=== PATIENT | female | born 1955 | race Caucasian/White ===

== ENCOUNTER 2018-09-23 09:14 | Inpatient (IN) ==
[2018-09-23] MEDS ORDERED: Labetalol HCl Inj 100 MG/20 ML Vial IV.CONT ONE (09:23)
[2018-09-23] MEDS ORDERED: Lidocaine PF 1% Inj 5 ML Syringe INFILTRATN ONE (09:23)
--- NOTE | 2018-09-23 10:19 | ED ---
HPI General Chief complaint: Extremity Injury, Lower Stated complaint: hip pain Time Seen by Provider: 09/23/18 10:02 History of Present Illness HPI narrative: 62-year-old female presents to the emergency department for evaluation of fall with left hip injury that occurred 3 days ago. Patient states she is status post left hip arthroplasty. States that 3 days ago she was walking in her house and her bedroom slipper got caught on the rug causing her to trip and fall onto her left side. States that she caught herself with her hands but she did fall hard onto her left hip. Denies head trauma or loss of consciousness. States that since then she has had significant pain in her left hip, lateral aspect. States that she is able to stand and weight-bear minimally however she cannot lift from the hip due to pain. Denies any numbness or tingling, weakness. She has been taking [id number] Tylenol with some improvement of symptoms. Symptoms are moderate in severity. Aggravated with movement of the hip. Possibly alleviated with Tylenol. No other complaints. Related Data Home Medications Medication Instructions Recorded Confirmed [id number] 2 tab PO Q4-6H PRN 09/24/18 09/24/18 [Excedrin Migraine] Allergies Allergy/AdvReac Type Severity Reaction Status Date / Time No Known Allergies Allergy Verified 09/23/18 10:51 Review of Systems ROS: all other systems reviewed are negative PMFSH Medical History Medical History Patient denies medical problems (Acute) Surgical History Surgical History History of hip replacement (Acute) Hx of laminectomy (Acute) Social History Social History Substance History: No History of Abuse Second Hand Smoke Exposure: Yes Smoking Status: Current every day smoker Tobacco Type: Cigarettes How Often Do You Have a Drink Containing Alcohol: Never Recent Travel in [place] within the Last 8 Weeks: No Recent Out of Country Travel within the Last 8 Weeks: No Immunization History Tetanus Immunization: Unsure Exam Narrative Exam Narrative: GENERAL: Well-nourished and well-developed pleasant patient in no acute distress who is nontoxic appearing. SKIN: Warm and dry. HEAD: Normocephalic and atraumatic. EYES: No injection, drainage, or hyphema noted. PERRLA. EOMI. ENT: No nasal drainage noted. Oropharynx is clear. NECK: Supple and the trachea is midline. CARDIOVASCULAR: Regular rate and rhythm. RESPIRATORY: Breath sounds are equal bilaterally with no accessory muscle use, wheezing, rhonchi, or crackles. MUSCULOSKELETAL: Tenderness to palpation of left lateral hip. Decreased range of motion in the left hip due to pain. No obvious deformities, swelling, cyanosis, or ecchymosis is present throughout the upper and lower extremities. Patient has full range of motion in all other joints and extremities without any signs of neurovascular compromise. Distal pulses are 2+ throughout. BACK: Nontender without any obvious deformities, bony point tenderness, or crepitus noted throughout the thoracic and lumbar vertebrae. NEUROLOGICAL: Awake, alert, and oriented. Normal speech and gait. Cranial nerves are grossly intact. Course Initial Documented Vital Signs Temperature 98.0 F 09/23/18 09:24 Pulse Rate 72 09/23/18 09:24 Respiratory Rate 18 09/23/18 09:24 Blood Pressure 152/91 H 09/23/18 09:24 Last Documented Vital Signs Temperature 99.5 F 09/25/18 12:00 Pulse Rate 67 09/25/18 12:00 Respiratory Rate 16 09/25/18 12:00 Blood Pressure 133/90 09/25/18 12:00 Pulse Oximetry 100 09/25/18 12:00 Medical Decision Making JUAN MANUEL Attestation JUAN MANUEL supervised visit: Yes Attestation: I, Dr. Cavazos, have reviewed the advance practice practitioner's documentation and am in agreement, met with the patient face to face, made the diagnosis, and the medical decision making was done by me. *My assessment and Findings: Fracture left femur MDM Narrative Medical decision making narrative: 62-year-old female presents to the emergency department for evaluation of left hip injury status post trip and fall that occurred 3 days ago. Patient is afebrile, vital signs are stable. Left lower extremity is neurovascularly intact. X-ray imaging has been ordered and is pending. Patient administered Fosters 5-325 mg orally. X-ray imaging shows patient has a left femur fracture through the arthroplasty. I called and discussed the case with Dr. Leung who also reviewed the images and request that patient be n.p.o. after midnight and admitted and he will do surgery in the morning. My attending physician Dr. Cavazos will review the labs, EKG and chest x-ray and have the patient admitted to medicine service. Medical Screen Exam Complete: Yes Emergency Medical Condition: Yes Differential Diagnosis Differential Diagnosis: Contusion versus fracture versus dislocation Lab Data Result diagrams: 09/25/18 06:42 09/24/18 04:51 Lab Results 09/23/18 09/23/18 09/23/18 Range/Units 11:44 11:44 11:44 WBC 6.4 (4.0-11.0) th/mm3 RBC 4.22 (4.00-5.30) mil/mm3 Hgb 12.8 (11.6-15.3) gm/dL Hct 37.4 (35.0-46.0) % MCV 88.7 (80.0-100.0) fL MCH 30.5 (27.0-34.0) pg MCHC 34.3 (32.0-36.0) % RDW 14.3 (11.6-17.2) % Plt Count 246 (150-450) th/mm3 MPV 7.6 (7.0-11.0) fL Neut % (Auto) 64.2 (16.0-70.0) % Lymph % (Auto) 28.1 (9.0-44.0) % [place] % (Auto) 6.4 (0.0-8.0) % Eos % (Auto) 0.6 (0.0-4.0) % Baso % (Auto) 0.7 (0.0-2.0) % Neut # (Auto) 4.1 (1.8-7.7) th/mm3 Lymph # (Auto) 1.8 (1.0-4.8) th/mm3 [place] # (Auto) 0.4 (0.0-0.9) th/mm3 Eos # (Auto) 0.0 (0.0-0.4) th/mm3 Baso # (Auto) 0.0 (0.0-0.2) th/mm3 WBC Differential . Differential Comment Auto diff final PT 10.1 (9.8-11.6) sec INR 1.0 Ratio APTT 29.3 (23.4-31.7) sec Sodium 140 (136-145) meq/L Potassium 3.9 (3.5-5.1) meq/L Chloride 104 (98-107) meq/L Carbon Dioxide 29.8 (21.0-32.0) meq/L Anion Gap 6 (5-15) meq/L BUN 7 (7-18) mg/dL Creatinine 0.66 (0.50-1.00) mg/dL Estimated GFR Greater than 89 (>89) mL/min Random Glucose 92 (74-106) mg/dL Calcium 8.9 (8.5-10.1) mg/dL Total Bilirubin 0.4 (0.2-1.0) mg/dL AST 32 (15-37) U/L ALT 35 (10-53) U/L Alkaline Phosphatase 137 H (45-117) U/L Total Protein 7.6 (6.4-8.2) g/dL Albumin 3.8 (3.4-5.0) g/dL Blood Type Blood Type Recheck Antibody Screen 09/24/18 09/24/18 09/24/18 Range/Units 04:51 04:51 08:36 WBC (4.0-11.0) th/mm3 RBC (4.00-5.30) mil/mm3 Hgb (11.6-15.3) gm/dL Hct (35.0-46.0) % MCV (80.0-100.0) fL MCH (27.0-34.0) pg MCHC (32.0-36.0) % RDW (11.6-17.2) % Plt Count (150-450) th/mm3 MPV (7.0-11.0) fL Neut % (Auto) (16.0-70.0) % Lymph % (Auto) (9.0-44.0) % [place] % (Auto) (0.0-8.0) % Eos % (Auto) (0.0-4.0) % Baso % (Auto) (0.0-2.0) % Neut # (Auto) (1.8-7.7) th/mm3 Lymph # (Auto) (1.0-4.8) th/mm3 [place] # (Auto) (0.0-0.9) th/mm3 Eos # (Auto) (0.0-0.4) th/mm3 Baso # (Auto) (0.0-0.2) th/mm3 WBC Differential Differential Comment PT 10.3 (9.8-11.6) sec INR 1.0 Ratio APTT (23.4-31.7) sec Sodium 140 (136-145) meq/L Potassium 3.9 (3.5-5.1) meq/L Chloride 103 (98-107) meq/L Carbon Dioxide 32.5 H (21.0-32.0) meq/L Anion Gap 5 (5-15) meq/L BUN 9 (7-18) mg/dL Creatinine 0.72 (0.50-1.00) mg/dL Estimated GFR 83 L (>89) mL/min Random Glucose 83 (74-106) mg/dL Calcium 9.2 (8.5-10.1) mg/dL Total Bilirubin 0.5 (0.2-1.0) mg/dL AST 27 (15-37) U/L ALT 30 (10-53) U/L Alkaline Phosphatase 129 H (45-117) U/L Total Protein 7.5 (6.4-8.2) g/dL Albumin 3.6 (3.4-5.0) g/dL Blood Type A Positive Blood Type Recheck Required Antibody Screen Negative 09/25/18 Range/Units 06:42 WBC (4.0-11.0) th/mm3 RBC (4.00-5.30) mil/mm3 Hgb 11.1 L (11.6-15.3) gm/dL Hct 32.0 L (35.0-46.0) % MCV (80.0-100.0) fL MCH (27.0-34.0) pg MCHC (32.0-36.0) % RDW (11.6-17.2) % Plt Count (150-450) th/mm3 MPV (7.0-11.0) fL Neut % (Auto) (16.0-70.0) % Lymph % (Auto) (9.0-44.0) % [place] % (Auto) (0.0-8.0) % Eos % (Auto) (0.0-4.0) % Baso % (Auto) (0.0-2.0) % Neut # (Auto) (1.8-7.7) th/mm3 Lymph # (Auto) (1.0-4.8) th/mm3 [place] # (Auto) (0.0-0.9) th/mm3 Eos # (Auto) (0.0-0.4) th/mm3 Baso # (Auto) (0.0-0.2) th/mm3 WBC Differential Differential Comment PT (9.8-11.6) sec INR Ratio APTT (23.4-31.7) sec Sodium (136-145) meq/L Potassium (3.5-5.1) meq/L Chloride (98-107) meq/L Carbon Dioxide (21.0-32.0) meq/L Anion Gap (5-15) meq/L BUN (7-18) mg/dL Creatinine (0.50-1.00) mg/dL Estimated GFR (>89) mL/min Random Glucose (74-106) mg/dL Calcium (8.5-10.1) mg/dL Total Bilirubin (0.2-1.0) mg/dL AST (15-37) U/L ALT (10-53) U/L Alkaline Phosphatase (45-117) U/L Total Protein (6.4-8.2) g/dL Albumin (3.4-5.0) g/dL Blood Type Blood Type Recheck Antibody Screen Imaging Data Radiologist's impression: Hip X-Ray 09/23/18 10:18 CONCLUSION: Proximal left femur fracture through the region of previous ADOLFO femoral stem Chest X-Ray 09/23/18 11:29 CONCLUSION: Negative for acute process Femur X-Ray 09/24/18 00:00 CONCLUSION: Interim screw, wire and plate fixation of the proximal shaft fracture of the left femur in normal alignment. Femur X-Ray 09/24/18 00:00 CONCLUSION: Interim plate fixation of the proximal shaft fracture of the left femur. Normal alignment. No acute complication demonstrated. Hip X-Ray 09/24/18 00:00 CONCLUSION: Interim plate fixation of the femur in normal alignment. No acute complication demonstrated. Discharge Plan Discharge Disposition Patient Disposition: ED Admit(ED Internal Use Only) Discharge Order Discharge Orders: ED Use Only Admit Order (Routine); Ordered 09/23/18 Ordered By: Andres Cavazos Discharge Details Diagnosis: Fracture of femur, left, closed Physicians Team ED Provider: Andres Cavazos ED Midlevel Provider: Bridgett Dixon Primary Care Provider: Primary Care Darby Salinas Attending Provider: Jeferson Dixon Other Providers: Vamsi Leung Status ED Status: Left Department Discharge Information Discharge Date/Time: 09/23/18 16:10
[2018-09-23 11:55] LABS: Baso % (Auto) 0.7 % (0.0-2.0); Eos % (Auto) 0.6 % (0.0-4.0); Hematocrit 37.4 % (35.0-46.0); Hemoglobin 12.8 gm/dL (11.6-15.3); Lymph # (Auto) 1.8 th/mm3 (1.0-4.8); Lymph % (Auto) 28.1 % (9.0-44.0); Mean Corpuscular HGB Conc 34.3 % (32.0-36.0); Mean Corpuscular Hemoglobin 30.5 pg (27.0-34.0); Mean Corpuscular Volume 88.7 fL (80.0-100.0); Mean Platelet Volume 7.6 fL (7.0-11.0); Mono # (Auto) 0.4 th/mm3 (0.0-0.9); Mono % (Auto) 6.4 % (0.0-8.0); Neut # (Auto) 4.1 th/mm3 (1.8-7.7); Neut % (Auto) 64.2 % (16.0-70.0); Platelet Count 246 th/mm3 (150-450); Red Blood Count 4.22 mil/mm3 (4.00-5.30); Red Cell Distribution Width 14.3 % (11.6-17.2); White Blood Count 6.4 th/mm3 (4.0-11.0)
[2018-09-23 12:06] LABS: Activated Partial Thrombo Time 29.3 sec (23.4-31.7); Prothrombin Time 10.1 sec (9.8-11.6)
[2018-09-23 12:17] LABS: Alanine Aminotransferase 35 U/L (10-53); Albumin 3.8 g/dL (3.4-5.0); Anion Gap 6 meq/L (5-15); Aspartate Aminotransferase 32 U/L (15-37); Blood Urea Nitrogen 7 mg/dL (7-18); Calcium 8.9 mg/dL (8.5-10.1); Carbon Dioxide 29.8 meq/L (21.0-32.0); Chloride 104 meq/L (98-107); Glomerular Filtration Rate Greater Than 89 mL/min (>89); Glucose,Random 92 mg/dL (74-106); Potassium 3.9 meq/L (3.5-5.1); Sodium 140 meq/L (136-145)
[2018-09-23 12:19] LABS: Alkaline Phosphatase 137 U/L (45-117); Total Protein 7.6 g/dL (6.4-8.2)
--- NOTE | 2018-09-23 12:48 | XR ---
EXAM DATE: 09/23/2018 12:46 PM EST AGE/SEX: 62 years / Female INDICATIONS: Cough. CLINICAL DATA: This is the patient's initial encounter. Patient reports that signs and symptoms have been present for 4 - 6 days and indicates a pain score of 0/10. MEDICAL/SURGICAL HISTORY: None. . Bilateral hip fx and surgery. COMPARISON: No prior exams available for comparison. FINDINGS: A single AP view of the chest demonstrates the lungs to be symmetrically aerated without evidence of mass, infiltrate or effusion. The cardiomediastinal contours are unremarkable. Osseous structures a re intact. CONCLUSION: Negative for acute process Electronically signed by: Rasta Trinh MD Board Certified Radiologist 09/23/2018 12:47 PM EST
[2018-09-23] MEDS ORDERED: Bisacodyl 10 MG Supp RECTAL PRN (13:22)
[2018-09-23] MEDS ORDERED: Acetaminophen 325 MG Tablet PO PRN (13:22)
--- NOTE | 2018-09-23 13:24 | XR ---
EXAM DATE: 09/23/2018 10:51 AM EST AGE/SEX: 62 years / Female INDICATIONS: Left hip pain after a fall. CLINICAL DATA: This is the patient's initial encounter. Patient reports that signs and symptoms have been present for 4 - 6 days and indicates a pain score of 8/10. MEDICAL/SURGICAL HISTORY: None. . Right hip.leg fx with surgery 2 years ago.Left hip surgery . COMPARISON: [facility], HIP LEFT (AP&LAT 2/3VWS) WO AP PELVIS, 07/02/2014. . FINDINGS: Left total hip arthroplasty is present. There is an oblique fracture through the proximal left femur in the region of the proximal stem extending from the inferior aspect of the greater trochanter obliq uely down into the medial metadiaphyseal region several centimeters proximal to the tip of the femora l stem component. There is some mild medial displacement of the proximal fragment it from the femoral component. The adjacent pelvis appears grossly intact. There has been previous IM nick and transcervical screw fixation of the contralateral right femur. Severe degenerative change in the rig ht hip joint. CONCLUSION: Proximal left femur fracture through the region of previous ADOLFO femoral stem Electronically signed by: Aníbal Fernandez MD Board Certified Radiologist 09/23/2018 1:23 PM EST
--- NOTE | 2018-09-23 13:53 | P.HPIM ---
History of Present Illness Primary Care Physician: Patient is a 62 year old female with no past medical history who presents to the ED for LEFT hip pain s/p mechanical fall at residence 4 days prior to admission. Patient reports she was home doing work around the house when she got her slipper stuck on the floor and lost her balance and fell on her left side. Patient tried to brace herself from falling so she did not take a full hit to the left side. Of note patient has had previous orthopedic surgical interventions. [address] Scooter Leung and also a hx of LEFT femur repair ( broken) by Dr. Watkins. Patient has known screws in the femur. Patient denied chest pain, nausea, vomiting, diaphoresis prior to the fall. Fall not witnessed but no seizure history. Patient reports she strictly lost her balance and fell. In ED EKG with sinus bradycardia but no acute ST changes. Good R wave progression. Orthopedics Dr. Mccallum notified and patient to go to OR on 09/24. NPO at midnight. Review of Systems Review of Systems: all other systems reviewed are negative [facility] Medical History Medical History Patient denies medical problems (Acute) Surgical History Surgical History History of hip replacement (Acute) Hx of laminectomy (Acute) Social History Social History Substance History: No History of Abuse Second Hand Smoke Exposure: Yes Smoking Status: Current every day smoker Tobacco Type: Cigarettes How Often Do You Have a Drink Containing Alcohol: Never Recent Travel in [facility] within the Last 8 Weeks: No Recent Out of Country Travel within the Last 8 Weeks: No Immunization History Tetanus Immunization: Unsure Medications and Allergies Allergies Allergy/AdvReac Type Severity Reaction Status Date / Time No Known Allergies Allergy Verified 09/23/18 10:51 Home Medications Medication Instructions Recorded Confirmed Type No Known Home Medications 09/23/18 09/23/18 History Active Medications: Active Medications Acetaminophen (Tylenol) 650 mg PO Q4H PRN PRN Reason: Temp > 100.4 Al Hydroxide/Mg Hydroxide (Milk Of Magnesia Liq) 30 ml PO Q12H PRN PRN Reason: Mild Constipation Bisacodyl (Dulcolax Supp) 10 mg RECTAL DAILY PRN PRN Reason: SEVERE CONSITIPATION Enoxaparin Sodium (Lovenox Inj) 30 mg SQ Q24H TRANG Lactulose (Lactulose Liq) 30 ml PO DAILY PRN PRN Reason: SEVERE CONSITIPATION Ondansetron HCl (Zofran Inj) 4 mg IV.PUSH Q6H PRN PRN Reason: NAUSEA OR VOMITING Senna/Docusate Sodium (Marita-Colace) 1 tab PO BID TRANG Sennosides (Senokot) 17.2 mg PO Q12H PRN PRN Reason: Moderate Constipation Sodium Chloride (Ns Flush) 2 ml IV.FLUSH PRN PRN PRN Reason: FLUSH AFTER USING IV ACCESS Sodium Chloride (Ns Flush) 2 ml IV.FLUSH BID TRANG Sodium Chloride (Ns Flush) 2 ml IV.FLUSH PRN PRN PRN Reason: FLUSH AFTER USING IV ACCESS Physical Exam Vital signs: Vital Signs 09/23/18 09:24 09/23/18 11:47 Temperature 98.0 F Pulse Rate 72 62 Respiratory Rate 18 20 Blood Pressure 152/91 H 157/88 H Pulse Oximetry 100 Intake & Output 09/22/18 09/23/18 09/23/18 18:59 06:59 18:59 Weight 54.431 kg gen: nad heent: eomi cvs; s1/s2. manual HR 62 resp: cta gi: soft, non tender, non distended msk/ortho: LEFT hip post surgical scar from prior surgery c/d/i. no hematoma, minimal tenderness ext; no leg edema Results Labs CBC & Chem 7: 09/23/18 11:44 09/23/18 11:44 Imaging Impressions Hip X-Ray 09/23/18 10:18 CONCLUSION: Proximal left femur fracture through the region of previous ADOLFO femoral stem Chest X-Ray 09/23/18 11:29 CONCLUSION: Negative for acute process Caprini VTE Risk Assessment Caprini VTE Risk Assessment: No/Low Risk (score <= 1) Caprini Risk Assessment Model: Point Value = 1 Point Value = 2 Point Value = 3 Point Value = 5 Age 41-60 Minor surgery BMI > 25 kg/m2 Swollen legs Varicose veins or History of unexplained or recurrent spontaneous Oral contraceptives or hormone replacement Sepsis (< 1 month) Serious lung disease, including pneumonia (< 1 month) Abnormal pulmonary function Acute myocardial infarction Congestive heart failure (< 1 month) History of inflammatory bowel disease Medical patient at bed rest Age 61-74 Arthroscopic surgery Major open surgery (> 45 min) Laparoscopic surgery (> 45 min) Malignancy Confined to bed (> 72 hours) Immobilizing plaster cast Central venous access Age >= 75 History of VTE Family history of VTE Factor V Leiden Prothrombin [id number] Lupus anticoagulant Anticardiolipin antibodies Elevated serum homocysteine Heparin-induced thrombocytopenia Other congenital or acquired thrombophilia Stroke (< 1 month) Elective arthroplasty Hip, pelvis, or leg fracture Acute spinal cord injury (< 1 month) Prophylaxis Regimen: Total Risk Factor Score Risk Level Prophylaxis Regimen 0-1 Low Early ambulation 2 Moderate Order ONE of the following: *Sequential Compression Device (SCD) *Heparin 5000 units SQ BID 3-4 Higher Order ONE of the following medications: *Heparin 5000 units SQ TID *Enoxaparin/Lovenox 40 mg SQ daily (WT < 150 kg, CrCl > 30 mL/min) *Enoxaparin/Lovenox 30 mg SQ daily (WT < 150 kg, CrCl > 10-29 mL/min) *Enoxaparin/Lovenox 30 mg SQ BID (WT < 150 kg, CrCl > 30 mL/min) AND/OR *Sequential Compression Device (SCD) 5 or more Highest Order ONE of the following medications: *Heparin 5000 units SQ TID (Preferred with Epidurals) *Enoxaparin/Lovenox 40 mg SQ daily (WT < 150 kg, CrCl > 30 mL/min) *Enoxaparin/Lovenox 30 mg SQ daily (WT < 150 kg, CrCl > 10-29 mL/min) *Enoxaparin/Lovenox 30 mg SQ BID (WT < 150 kg, CrCl > 30 mL/min) AND *Sequential Compression Device (SCD) Assessment and Plan Plan patient is a 62 year old female with history of prior LEFT femur repair, RIGHT hip replacement who presents with worsening LEFT hip pain s/p mechanical fall found to have femur fracture orthopedics: femur fracture - ortho consulted and recc PENDING - npo at midnight - ekg reviewed: sinus eleazar no ST change - cbc, bmp, inr for am - PT consult AFTER she returns from OR. primary team will place consult after O.R - hip xray: Proximal left femur fracture through the region of previous ADOLFO femoral stem Psych: tobacco use - counselled patient on importance of not smoking, patient verbalized understanding and reports that she will not continue to smoke code: fc dvt ppx: lovenox ( hold on 09/24) diet: regular --> npo at midnight dispo: med/surg
[2018-09-23] MEDS: Morphine Sulfate Inj 2 MG/ML Vial IV.PUSH PRN ×3 (15:25→23:38)
[2018-09-23] MEDS: Enoxaparin Inj 30 MG/0.3 ML Syringe SQ SCH (15:25)
[2018-09-23] MEDS: Senna/Docusate Sodium 8.6/50 MG Tablet PO SCH (20:05)
[2018-09-24] MEDS ORDERED: Chlorhexidine Gluconate 2% 1 Pack (2 Cloths) TOPICAL ONE (04:08)
[2018-09-24] MEDS: Morphine Sulfate Inj 2 MG/ML Vial IV.PUSH PRN (04:35)
[2018-09-24] MEDS ORDERED: Sodium Chlor 0.9% Inj 500 ML IV.SIG SCH (05:00)
[2018-09-24 06:16] LABS: Prothrombin Time 10.3 sec (9.8-11.6)
[2018-09-24 06:35] LABS: Albumin 3.6 g/dL (3.4-5.0); Anion Gap 5 meq/L (5-15); Aspartate Aminotransferase 27 U/L (15-37); Blood Urea Nitrogen 9 mg/dL (7-18); Calcium 9.2 mg/dL (8.5-10.1); Carbon Dioxide 32.5 meq/L (21.0-32.0); Chloride 103 meq/L (98-107); Glomerular Filtration Rate 83 mL/min (>89); Glucose,Random 83 mg/dL (74-106); Potassium 3.9 meq/L (3.5-5.1); Sodium 140 meq/L (136-145)
[2018-09-24 06:40] LABS: Alanine Aminotransferase 30 U/L (10-53); Alkaline Phosphatase 129 U/L (45-117); Total Protein 7.5 g/dL (6.4-8.2)
[2018-09-24] MEDS ORDERED: HYDROmorphone PF Inj 1 MG/ML Ampul ONE ×2 (06:57→10:53)
[2018-09-24] MEDS ORDERED: Neostigmine Inj 5 MG/5 ML Syringe IV.PUSH ONE (07:50)
[2018-09-24] MEDS ORDERED: Glycopyrrolate Inj 1 MG/5 ML Syringe IV.PUSH ONE (07:50)
[2018-09-24] MEDS ORDERED: Sodium Chlor 0.9% Inj 500 ML IV.CONT ONE (07:50)
[2018-09-24] MEDS ORDERED: Lidocaine PF 1% Inj 5 ML Syringe OTHER ONE (07:50)
[2018-09-24] MEDS ORDERED: Tranexamic Acid Inj 1,000 MG/10 ML Ampul ONE (08:13)
[2018-09-24] MEDS: Senna/Docusate Sodium 8.6/50 MG Tablet PO SCH ×2 (08:30→21:36)
[2018-09-24] MEDS ORDERED: ceFAZolin 2 GM Premix Inj 2 GM/50 ML PIGGYBACK IV.SIG ONE (09:23)
[2018-09-24] MEDS ORDERED: Tranexamic Acid Inj 1,000 MG in Sodium Chlor 0.9% Inj 100 ML IV.SIG SCH (10:00)
[2018-09-24] MEDS ORDERED: [UNRECOGNIZED DRUG - OTHER] IRRIGATION ONE ×3 (10:13)
[2018-09-24] MEDS ORDERED: GENTAMICIN IRRIGATION ONE ×3 (10:13)
[2018-09-24] MEDS ORDERED: Promethazine 25 MG Supp RECTAL PRN (10:33)
[2018-09-24] MEDS ORDERED: Bisacodyl 10 MG Supp RECTAL PRN (10:33)
[2018-09-24] MEDS ORDERED: Post-op Orders (for Pharmacy) OTHER STA (10:33)
--- NOTE | 2018-09-24 10:36 | XR ---
EXAM DATE: 09/24/2018 10:23 AM EST AGE/SEX: 62 years / Female INDICATIONS: ORIF of left femur performed in the operating room. CLINICAL DATA: This is the patient's initial encounter. Patient reports that signs and symptoms have been present for 1 day and indicates a pain score of Nonresponsive. MEDICAL/SURGICAL HISTORY: Non-responsive. Non-responsive. COMPARISON: [facility], HIP LEFT W AP PELVIS 2V, 09/23/2018. . FINDINGS: Interim screw, wire and plate fixation of the proximal left femur. There is a lateral plate with a tr ochanteric claw. Alignment is normal. The fracture of the subtrochanteric region is not well visualiz ed. Left total hip arthroplasty again noted, intact. CONCLUSION: Interim screw, wire and plate fixation of the proximal shaft fracture of the left femur in normal ali gnment. Electronically signed by: Aníbal Fields MD Board Certified Radiologist 09/24/2018 10:35 AM EST
[2018-09-24] MEDS ORDERED: *morphine SULFATE 4 MG/ML PERIprocedure ONLY ONE (10:50)
[2018-09-24] MEDS ORDERED: fentaNYL Citrate Inj 100 MCG/2 ML Ampul ONE (10:52)
--- NOTE | 2018-09-24 11:00 | MB ---
cc: Vamsi Leung MD DATE: 09/24/2018 REASON FOR CONSULTATION: Left periprosthetic femur fracture. HISTORY: The patient is a 62-year-old female who had a trip and fall injury at her home. She developed severe onset of progressive pain and weakness of the left hip with difficulty to stand and ambulate. She has history of previous left total hip arthroplasty through an anterior approach performed and was doing well prior to this fall. Pain is severe, constant, throbbing, worsening symptoms with any weightbearing or movement. No numbness or tingling. No referred symptoms. No nausea or vomiting. She denies hitting her head. Denies loss of consciousness. PAST MEDICAL HISTORY: Negative. PAST SURGICAL HISTORY: Left hip replacement surgery, laminectomy, history of right intertrochanteric hip fracture treated with trochanteric femoral nailing. SOCIAL HISTORY: She is a current every day smoker. She does not drink alcohol. She does not use drugs. REVIEW OF SYSTEMS: Negative for 10 systems in the HPI. ALLERGIES: NO KNOWN DRUG ALLERGIES. MEDICATIONS: She takes no home medications. PHYSICAL EXAMINATION: VITAL SIGNS: Temperature is 98, pulse 72, respirations 18, blood pressure 150/90. The patient is awake, alert, lying in bed, in no acute distress. HEENT, normocephalic, atraumatic. Pupils round. Extraocular muscles intact. NECK: Supple. LUNGS: Clear. HEART: Regular rate and rhythm. ABDOMEN: Soft, nontender. PSYCHIATRIC: Her mood and affect are appropriate. SKIN: Warm, dry, and intact. NEUROLOGIC: Nonfocal. EXTREMITIES: The patient has pain with any passive motion of the left hip. She flexes her ankle and toes distally. LABORATORY DATA: White blood cell count 6.4, hemoglobin is 12, hematocrit 37, platelets 246,000. Glucose 92, BUN 7, creatinine 0.66. RADIOLOGIC DATA: X-ray of left hip shows a left total hip arthroplasty with a periprosthetic femur fracture surrounding the hip prosthesis. IMPRESSION: A 62-year-old female, status post fall, left periprosthetic femur fracture as related to previous left total hip arthroplasty. PLAN: Discussed the diagnosis, treatment options with the option of operative versus nonoperative treatment. Surgery would consist of open reduction and internal fixation with possible revision of components. The risks of surgery were discussed, which include but are not limited to anesthesia, bleeding, infection, damage to nerves and blood vessels, fracture dislocation, failure of components, blood clots, pulmonary embolism, and even . The patient favored the benefits over the risks. She did wish to proceed with surgery. Written consent has been obtained. The surgical site has been marked. Vamsi Leung MD JWArely/eunice , 10:27 AM , 10:34 AM
[2018-09-24] MEDS ORDERED: *Meperidine Inj 25 MG/ML Vial PERIprocedural Use ONLY ONE (11:07)
--- NOTE | 2018-09-24 11:41 | ECG ---
Date Performed: 09/23/2018 Time Performed: 13:27:41 PTAGE: 62 years EKG: SINUS BRADYCARDIA BORDERLINE ECG PREVIOUS TRACING : 03/01/2014 06.55 DOCTOR: Galindo Soctt Interpretating Date/Time 09/24/2018 11:34:29
--- NOTE | 2018-09-24 11:47 | XR ---
EXAM DATE: 09/24/2018 11:36 AM EST AGE/SEX: 62 years / Female INDICATIONS: Post OP. CLINICAL DATA: This is the patient's initial encounter. Patient reports that signs and symptoms have been present for 1 day and indicates a pain score of 7/10. MEDICAL/SURGICAL HISTORY: None. None. [place] [facility] [place] 2[place]23/2018. . FINDINGS: Interim screw, wire and plate fixation laterally of the femur. Alignment is normal. Left hip arthropl asty remains intact. CONCLUSION: Interim plate fixation of the femur in normal alignment. No acute complication demonstrated. Electronically signed by: Aníbal Fields MD Board Certified Radiologist 09/24/2018 11:46 AM EST
--- NOTE | 2018-09-24 11:48 | XR ---
EXAM DATE: 09/24/2018 11:39 AM EST AGE/SEX: 62 years / Female INDICATIONS: Post OP. CLINICAL DATA: This is the patient's initial encounter. Patient reports that signs and symptoms have been present for 1 day and indicates a pain score of 7/10. MEDICAL/SURGICAL HISTORY: None. None. COMPARISON: [facility], HIP LEFT W AP PELVIS 2V, 09/24/2018. . FINDINGS: There is now a lateral plate with a trochanteric claw. All screws and cerclage wires are present. The proximal shaft fracture of the left femur is in normal alignment. The left hip arthroplasty remains intact and normally aligned. CONCLUSION: Interim plate fixation of the proximal shaft fracture of the left femur. Normal alignment. No acute c omplication demonstrated. Electronically signed by: Aníbal Fields MD Board Certified Radiologist 09/24/2018 11:47 AM EST
--- NOTE | 2018-09-24 12:42 | P.PNIM ---
Subjective Interval history: Patient seen and examined this afternoon following OR with orthopedics + pain in the LEFT leg but no numbness/tingling no chest pain no sob no nausea doesnt want to eat yet but will try later Physical Exam Vital signs: Vital Signs 09/23/18 15:24 09/23/18 16:00 09/23/18 19:20 Temperature 98.0 F 97.9 F Pulse Rate 66 51 L 59 L Respiratory Rate 20 16 17 Blood Pressure 137/66 137/81 135/64 Pulse Oximetry 100 98 99 09/23/18 23:10 09/24/18 04:35 09/24/18 08:00 Temperature 97.8 F 97.9 F 98.1 F Pulse Rate 54 L 55 L 66 Respiratory Rate 17 16 20 Blood Pressure 119/77 150/79 H 150/88 H Pulse Oximetry 99 98 99 09/24/18 10:45 09/24/18 10:55 09/24/18 11:00 Temperature 97.2 F L Pulse Rate 70 72 Respiratory Rate 16 16 15 Blood Pressure 140/97 H 152/94 H Pulse Oximetry 100 94 L 09/24/18 11:15 09/24/18 11:30 09/24/18 11:45 Temperature 97.6 F Pulse Rate 71 69 68 Respiratory Rate 15 15 16 Blood Pressure 159/85 H 157/86 H 150/75 H Pulse Oximetry 94 L 95 95 09/24/18 11:50 Temperature Pulse Rate Respiratory Rate Blood Pressure Pulse Oximetry 95 Intake & Output 09/23/18 09/24/18 09/24/18 18:59 06:59 18:59 Intake Total 840 / 840 1350 / 1350 Output Total 200 / 200 Balance 840 / 840 1150 / 1150 Weight 54.43 kg 53.7 kg Intake: IV 50 / 50 Ancef 2 GM Premix Inj 2 gm In 50 / 50 50 ml @ 100 mls/hr IV.SIG ONCE ONE Rx#:[id number] Oral 840 / 840 Anesthesia Amount 1300 / 1300 Output: Estimated Blood Loss 200 / 200 Other: # Voids 2 Date of Last Bowel Movement 09/22/18 09/22/18 # Bowel Movements 0 Weight On Admission 54.43 kg gen: NAD heent: eomi cvs: s1/s2 resp: CTA bilaterally gi: soft, non tender, non distended ext: LEFT leg casting in place, wiggles toes, warm and perfusing, 2+ DPP neuro: No droop or slurred speech Results Labs CBC & Chem 7: 09/23/18 11:44 09/24/18 04:51 Imaging Imaging: Impressions Hip X-Ray 09/23/18 10:18 CONCLUSION: Proximal left femur fracture through the region of previous ADOLFO femoral stem Chest X-Ray 09/23/18 11:29 CONCLUSION: Negative for acute process Femur X-Ray 09/24/18 00:00 CONCLUSION: Interim screw, wire and plate fixation of the proximal shaft fracture of the left femur in normal alignment. Femur X-Ray 09/24/18 00:00 CONCLUSION: Interim plate fixation of the proximal shaft fracture of the left femur. Normal alignment. No acute complication demonstrated. Hip X-Ray 09/24/18 00:00 CONCLUSION: Interim plate fixation of the femur in normal alignment. No acute complication demonstrated. Assessment and Plan Plan patient is a 62 year old female with history of prior LEFT femur repair, RIGHT hip replacement who presents with worsening LEFT hip pain s/p mechanical fall found to have femur fracture orthopedics: femur fracture s/p operative repair - s/p repair on 09/24 - ortho consulted and folllowing - advance diet as tolerated - ekg reviewed: sinus eleazar no ST change - PT consult - hip xray: Proximal left femur fracture through the region of previous ADOLFO femoral stem Psych: tobacco use - Approximately 15 minutes was spent counseling the patient is cessation techniques. Understands continuing to smoke could lead to stroke and , worsening of COPD. Benefits of stopping also presented to the patient. Patient verbalized desire to "give it a try" regarding smoking cessation and its benefits. Nicotine patch recommended. code: fc dvt ppx: lovenox diet: regular dispo: med/surg Progress Note: Quality VTE Deep Vein Thrombosis/Pulmonary Embolism Present on Admission: No
[2018-09-24] MEDS: Morphine Inj 4 MG/ML Vial IV.PUSH PRN ×2 (13:01→16:33)
--- NOTE | 2018-09-24 13:42 | MP ---
cc: Vamsi Leung MD DATE OF OPERATION: 09/24/2018 PREOPERATIVE DIAGNOSIS: Left periprosthetic femur fracture. POSTOPERATIVE DIAGNOSIS: Left periprosthetic femur fracture. PROCEDURE PERFORMED: Open reduction and internal fixation, left periprosthetic femur fracture. SURGEON: Vamsi Leung MD LEAD PRINCIPAL TECHNICAL ARCHITECT: JOYCELYN Faulkner ANESTHESIA: General. ESTIMATED BLOOD LOSS: 200 mL. COMPLICATIONS: None. IMPLANTS USED: Synthes. JUSTIFICATION: The patient is a 62-year-old female who fell and sustained a displaced left periprosthetic femur fracture as related to previous left total hip arthroplasty. She presented to [facility] Emergency Room. X-rays confirmed the above-named findings. Orthopedic surgery was consulted. The patient was counseled on risks, benefits, and alternatives of the above-named proposed surgical procedure. She wishes to proceed with surgery. PROCEDURE IN DETAIL: Written consent was obtained. The patient was identified and then taken to the OR and placed supine on the operating table. General anesthesia was administered to the patient, as well as 2 grams of IV Ancef and 1 gram IV vancomycin. The patient was carefully turned to the right lateral decubitus position. A lateral arm was placed. All bony prominences were well padded. The left hip and left lower extremity were prepped and draped using isopropyl alcohol, Hibiclens solution and ChloraPrep solution. After a timeout was performed, a longitudinal incision was made in the lateral aspect of the left hip. The fascial layer was incised. The vastus lateralis was then elevated off the lateral aspect of the femur and this allowed exposure of the fracture. Multiple fracture reduction tenaculum clamps were used to assist with fracture reduction. Subsequently, a Synthes femur plate was applied to the lateral aspect of the femur and the plate was precontoured to allow for appropriate fit. Nonlocking screws were used for distal fixation. Cerclage cables were placed around the proximal portion of the plate to allow for fracture reduction and stabilization of the fracture. Fluoroscopic imaging confirmed hardware placement, fracture reduction. Surgical wound was thoroughly irrigated with sterile saline pulse lavage and antibiotic impregnated solution. The fascial layer was closed with #1 Vicryl suture, the subcutaneous layer with 2-0 Vicryl suture. Skin was closed with Dermabond. Sterile dressing was applied. The patient tolerated the procedure well. No intraoperative complications noted. Pancho Singh, physician assistant pastry chef certified, was present throughout the procedure, to include patient positioning and the procedure itself. The medical necessity of the physician assistant pastry chef was indicated in this case due to the complexity of the procedure. He assisted with appropriate manipulation of the leg and also both achieving and maintaining fracture reduction along with implantation of the internal fixation device. MD ALEKSANDRA Choi/eunice/annette , 10:30 AM , 10:37 AM
[2018-09-24] MEDS: Enoxaparin Inj 30 MG/0.3 ML Syringe SQ SCH (15:07)
[2018-09-24] MEDS ORDERED: Zolpidem Tartrate 5 MG Tablet PO PRN (21:00)
[2018-09-24] MEDS ORDERED: Butalbital/APAP/Caff 50/325/40 MG Tablet PO ONE (21:15)
--- NOTE | 2018-09-25 08:06 | P.PNOP ---
Subjective Interval history: having pain. doing ok. Physical Exam Vital signs: Vital Signs 09/24/18 10:45 09/24/18 10:55 09/24/18 11:00 Temperature 97.2 F L Pulse Rate 70 72 Respiratory Rate 16 16 15 Blood Pressure 140/97 H 152/94 H Pulse Oximetry 100 94 L 09/24/18 11:15 09/24/18 11:30 09/24/18 11:38 Temperature Pulse Rate 71 69 Respiratory Rate 15 15 16 Blood Pressure 159/85 H 157/86 H Pulse Oximetry 94 L 95 09/24/18 11:45 09/24/18 11:50 09/24/18 12:00 Temperature 97.6 F 97.6 F Pulse Rate 68 82 Respiratory Rate 16 20 Blood Pressure 150/75 H 166/89 H Pulse Oximetry 95 95 99 09/24/18 16:00 09/24/18 20:10 09/24/18 23:07 Temperature 98.1 F 98 F 98.5 F Pulse Rate 55 L 69 63 Respiratory Rate 20 17 18 Blood Pressure 150/77 H 126/84 142/76 H Pulse Oximetry 98 98 98 09/25/18 03:47 Temperature 98.7 F Pulse Rate 71 Respiratory Rate 18 Blood Pressure 137/72 Pulse Oximetry 96 Intake & Output 09/24/18 09/25/18 09/25/18 18:59 06:59 18:59 Intake Total 1420 / 1420 2270 / 2270 Output Total 200 / 200 Balance 1220 / 1220 2270 / 2270 Weight 55.3 kg Intake: IV 120 / 120 1070 / 1070 LR 1000 mL Inj 1,000 ML @ 100 1000 / 1000 mls/hr IV.CONT .Q10H [facility] Rx#: [id number] Ancef 2 GM Premix Inj 2 gm In 50 / 50 50 ml @ 100 mls/hr IV.SIG ONCE ONE Rx#:[id number] Ancef Inj 2,000 MG In D5W Inj 70 / 70 70 / 70 50 ML @ 200 mls/hr IV.SIG Q8H [facility] Rx#:[id number] Oral 1200 / 1200 Anesthesia Amount 1300 / 1300 Output: Estimated Blood Loss 200 / 200 Other: # Voids 1 5 Date of Last Bowel Movement 09/22/18 09/22/18 # Bowel Movements 0 Narrative: in bed, nad dressing c/d/i neg homans nvi Results - Labs CBC & Chem 7: 09/23/18 11:44 09/24/18 04:51 Laboratory Results - last 24 hr 09/24/18 08:36 Blood Type A Positive Blood Type Recheck Required Antibody Screen Negative - Imaging Impressions Femur X-Ray 09/24/18 00:00 CONCLUSION: Interim screw, wire and plate fixation of the proximal shaft fracture of the left femur in normal alignment. Femur X-Ray 09/24/18 00:00 CONCLUSION: Interim plate fixation of the proximal shaft fracture of the left femur. Normal alignment. No acute complication demonstrated. Hip X-Ray 09/24/18 00:00 CONCLUSION: Interim plate fixation of the femur in normal alignment. No acute complication demonstrated. Assessment and Plan - Ortho Post Op Day # 1 - Assessment and Plan s/p ORIF L periprosthetic hip fracture POD#1 NWB ok to maintain dressing lovenox d/c planning PT tobacco cessation f/up dr. cunha 2 weeks
[2018-09-25 08:28] LABS: Hemoglobin 11.1 gm/dL (11.6-15.3)
[2018-09-25] MEDS: Multivitamin/Minerals Therapeutic Tablet PO SCH (09:13)
[2018-09-25] MEDS: Folic Acid 1 MG Tablet PO SCH (09:13)
[2018-09-25] MEDS: Senna/Docusate Sodium 8.6/50 MG Tablet PO SCH ×2 (09:14→21:46)
--- NOTE | 2018-09-25 12:00 | P.PNIM ---
Subjective Interval history: Follow-up, status post fall, left femur repair: Patient seen and examined, left surgical site pain stable. No nausea, no vomiting. Headache last night, it is coming back. No bowel movement yet. No chest pain, no shortness of breath, no cough, no sputum. Patient very pleasant, states that she does not have insurance but has some medical equipment at home and her significant other can help as well. Physical Exam Vital signs: Vital Signs 09/24/18 12:00 09/24/18 16:00 09/24/18 20:10 Temperature 97.6 F 98.1 F 98 F Pulse Rate 82 55 L 69 Respiratory Rate 20 20 17 Blood Pressure 166/89 H 150/77 H 126/84 Pulse Oximetry 99 98 98 09/24/18 23:07 09/25/18 03:47 09/25/18 08:00 Temperature 98.5 F 98.7 F 98.2 F Pulse Rate 63 71 75 Respiratory Rate 18 18 16 Blood Pressure 142/76 H 137/72 133/82 Pulse Oximetry 98 96 98 Intake & Output 09/24/18 09/25/18 09/25/18 18:59 06:59 18:59 Intake Total 1420 / 1420 2270 / 2270 1000 / 1000 Output Total 200 / 200 Balance 1220 / 1220 2270 / 2270 1000 / 1000 Weight 55.3 kg Intake: IV 120 / 120 1070 / 1070 1000 / 1000 LR 1000 mL Inj 1,000 ML @ 100 1000 / 1000 1000 / 1000 mls/hr IV.CONT .Q10H [facility] Rx#: [id number] Ancef 2 GM Premix Inj 2 gm In 50 / 50 50 ml @ 100 mls/hr IV.SIG ONCE ONE Rx#:[id number] Ancef Inj 2,000 MG In D5W Inj 70 / 70 70 / 70 50 ML @ 200 mls/hr IV.SIG Q8H [facility] Rx#:[id number] Oral 1200 / 1200 Anesthesia Amount 1300 / 1300 Output: Estimated Blood Loss 200 / 200 Other: # Voids 1 5 Date of Last Bowel Movement 09/22/18 09/22/18 09/22/18 # Bowel Movements 0 Narrative: GENERAL: 62-year-old thin built female, no apparent distress SKIN: Warm and dry. HEAD: Atraumatic. Normocephalic. EYES: Pupils equal and round. No scleral icterus. No injection or drainage. ENT: No nasal bleeding or discharge. Mucous membranes pink and moist. NECK: Trachea midline. No JVD. CARDIOVASCULAR: Regular rate and rhythm. RESPIRATORY: No accessory muscle use. Clear to auscultation. Breath sounds equal bilaterally. GASTROINTESTINAL: Abdomen soft, non-tender, nondistended. Hepatic and splenic margins not palpable. MUSCULOSKELETAL: Left hip/thigh with dressing, minimal swelling. Intact sensation to left foot, limited range of motion secondary to pain. Right pedal pulse 2+. No other joint abnormality. NEUROLOGICAL: Awake and alert. No obvious cranial nerve deficits. Motor grossly within normal limits. Five out of 5 muscle strength in the arms and legs. Normal speech. PSYCHIATRIC: Appropriate mood and affect; insight and judgment normal. Results Labs CBC & Chem 7: 09/25/18 06:42 09/24/18 04:51 Procedures Procedures: 09/24/2018, ORIF left periprosthetic femur fracture Assessment and Plan Plan 62 year old female with history of prior LEFT femur repair, RIGHT hip replacement who presents with worsening LEFT hip pain s/p mechanical fall found to have femur fracture orthopedics: femur fracture s/p operative repair - s/p ORIF left femur fracture on 09/24 - ortho consulted and following -Postop care Continue with PT Pain management as needed Antiemetics as needed Bowel regimen DVT prophylaxis-JOHN hose and aspirin -Postop labs reviewed, H&H stable Psych: tobacco use - Approximately 15 minutes was spent counseling the patient is cessation techniques. Understands continuing to smoke could lead to stroke and , worsening of COPD. Benefits of stopping also presented to the patient. Patient verbalized desire to "give it a try" regarding smoking cessation and its benefits. Nicotine patch recommended. Migraine headache Fioricet as needed Aspirin test for DVT prophylaxis PPI for GI prophylaxis Case management following Possible discharge tomorrow when cleared by Ortho Code Status: Full code Discussed Condition With: RN, pt, CM Dr. Neha Dixon Discharge Planning: Poss home Progress Note: Quality VTE Deep Vein Thrombosis/Pulmonary Embolism Present on Admission: No
[2018-09-25] MEDS: Butalbital/ASA/Caff 50/325/40 Capsule PO PRN (17:21)
[2018-09-26] MEDS: Butalbital/ASA/Caff 50/325/40 Capsule PO PRN (05:55)
[2018-09-26 06:44] LABS: Hematocrit 31.5 % (35.0-46.0); Hemoglobin 10.8 gm/dL (11.6-15.3)
[2018-09-26] MEDS: Multivitamin/Minerals Therapeutic Tablet PO SCH (08:16)
[2018-09-26] MEDS: Senna/Docusate Sodium 8.6/50 MG Tablet PO SCH (08:16)
[2018-09-26] MEDS: Folic Acid 1 MG Tablet PO SCH (08:16)
[2018-09-26 09:26] VITALS: BP 128/65; PULSE 71; RESP 12; TEMP 98.4; O2SAT 100
--- NOTE | 2018-09-26 10:00 | P.DS ---
DS: Providers Date of admission: 09/23/18 14:03 Primary care physician: No Primary Care Physician Attending physician on admission: Jeferson Dixon Consults: 09/23/18 12:02 Consult to Orthopedic Surgery Routine Consulting Provider: Vamsi Leung Preferred Time Buyer:: Vamsi Leung Reason for Consultation: left femur fracture Do not call physician, already spoke with him Notified:: Office Date Notified:: 09/23/18 Time Notified:: 12:16 Ordering Provider: AMANDA Attending physician on discharge: Jeferson Dixon Discharging clinician: Maria Teresa Ojeda Anticipated date of discharge: 09/26/18 Brief History from admission: Patient is a 62 year old female with no past medical history who presents to the ED for LEFT hip pain s/p mechanical fall at residence 4 days prior to admission. Patient reports she was home doing work around the house when she got her slipper stuck on the floor and lost her balance and fell on her left side. Patient tried to brace herself from falling so she did not take a full hit to the left side. Of note patient has had previous orthopedic surgical interventions. [address] Scooter Leung and also a hx of LEFT femur repair ( broken) by Dr. Watkins. Patient has known screws in the femur. Patient denied chest pain, nausea, vomiting, diaphoresis prior to the fall. Fall not witnessed but no seizure history. Patient reports she strictly lost her balance and fell. In ED EKG with sinus bradycardia but no acute ST changes. Good R wave progression. Orthopedics Dr. Mccallum notified and patient to go to OR on 09/24. NPO at midnight. Patient update on day of discharge: Follow-up, status post fall, left femur repair: Patient seen and examined, left surgical site pain stable. Migraine headaches resolved. No nausea, no vomiting. Tolerating diet well. Family is obtaining DME. Patient looking forward to going home. Has been working with physical therapy. No fever. Hemodynamically stable DS: Summary 62 year old female with history of prior LEFT femur repair, RIGHT hip replacement who presents with worsening LEFT hip pain s/p mechanical fall found to have femur fracture Orthopedics was consulted, s/p ORIF left femur fracture on 09/24 Had an uneventful postop course, pain was well managed Postop labs were reviewed, H&H stable Patient was counseled about tobacco abuse, nicotine patch was recommended Patient with history of migraines, Fioricet order, headaches were relieved. Patient was put on aspirin and SCDs for DVT prophylaxis Physical therapy was ordered and work with patient Case management assisted with DC planning Patient was cleared for discharge, she was discharged home with DME equipment and instructions provided by physical therapy in stable condition The exam, history, and the medical decision-making described in the above note were completed with the assistance of the mid-level provider. I reviewed and agree with the findings presented. I attest that I had a [id number] encounter with the patient on the same day, and personally performed and documented my assessment and findings in the medical record. I agree with above. discharge today Time spent discussing smoking cessation with patient: 3 to 10 minutes Time Spent with Patient Total time spent providing and/or coordinating discharge services:45 Greater than 30 minutes Status at Discharge Functional status at discharge: independent ambulation Overall status at discharge: patient is progressing back to baseline Quality: VTE Deep Vein Thrombosis/Pulmonary Embolism Present on Admission: No Exam Narrative Exam Narrative: GENERAL: 62-year-old thin built female, no apparent distress SKIN: Warm and dry. HEAD: Atraumatic. Normocephalic. EYES: Pupils equal and round. No scleral icterus. No injection or drainage. ENT: No nasal bleeding or discharge. Mucous membranes pink and moist. NECK: Trachea midline. No JVD. CARDIOVASCULAR: Regular rate and rhythm. RESPIRATORY: No accessory muscle use. Clear to auscultation. Breath sounds equal bilaterally. GASTROINTESTINAL: Abdomen soft, non-tender, nondistended. Hepatic and splenic margins not palpable. MUSCULOSKELETAL: Left hip/thigh with dressing, minimal swelling. Intact sensation to left foot, limited range of motion secondary to pain. Right pedal pulse 2+. No other joint abnormality. NEUROLOGICAL: Awake and alert. No obvious cranial nerve deficits. Motor grossly within normal limits. Five out of 5 muscle strength in the arms and legs. Normal speech. PSYCHIATRIC: Appropriate mood and affect; insight and judgment normal. Results Procedures completed during hospitalization: 09/24/2018, ORIF left periprosthetic femur fracture Labs on day of discharge: Labs from last 24 hours 09/26/18 06:12 Hgb 10.8 L Hct 31.5 L Impressions ITS Impressions Chest X-Ray 09/23/18 11:29 CONCLUSION: Negative for acute process Femur X-Ray 09/24/18 00:00 CONCLUSION: Interim plate fixation of the proximal shaft fracture of the left femur. Normal alignment. No acute complication demonstrated. Hip X-Ray 09/24/18 00:00 CONCLUSION: Interim plate fixation of the femur in normal alignment. No acute complication demonstrated. Discharge Plan Discharge Disposition Patient Disposition: 01 Discharge Home Discharge Condition Condition: Stable Discharge Order Discharge Orders: Discharge Order (Routine); Ordered 09/26/18 Ordered By: Maria Teresa Ojeda Discharge Details Anticipated Discharge Date: 09/26/18 Discharge Comment: Discharge when ok by ortho Physicians Team ED Provider: Andres Cavazos ED Midlevel Provider: Bridgett Dixon Primary Care Provider: Primary Care Darby Salinas Attending Provider: Jeferson Dixon Other Providers: Vamsi Leung Rxs /Orders / Referrals /Forms Prescriptions: New aspirin 81 mg Tablet,Delayed Release (Dr/Ec) 81 mg PO Q12H Qty: 60 RF: 0 Continue [id number] [Excedrin Migraine] 250-250-65 mg Tablet 2 tab PO Q4-6H PRN (Reason: Migraine Headache) RF: 0 Referrals: Vamsi Leung MD [Physician] - See Instructions (call for appointment in 2 weeks ) Primary Care Darby Salinas [Primary Care Provider] - See Instructions Discharge Instructions Patient Printed Instructions: Hydrocodone/Acetaminophen (By mouth), Aspirin ( By mouth), How to Use an Incentive Spirometer (DC), How to Choose and Use a Walker (GEN), How to Choose and Use a Wheelchair (GEN), ORIF (DC) Post Discharge Care Plan Care Plan Goals: Your Health Problems: Goals to Promote Your Health: * To prevent worsening of your condition * To maintain your health at the optimal level Directions to Meet Your Goals: * Take your medications as prescribed * Follow your dietary instruction * Follow activity as directed * Keep your appointments as scheduled * Take your immunizations and boosters as scheduled * If your symptoms worsen call your PCP * If no PCP go to Urgent Care or Emergency Room Smoking is dangerous to your health. Avoid second hand smoke. You may reach the 24-hour crisis hotline for domestic abuse at . Status ED Status: Left Department Discharge Information Discharge Date/Time: 09/26/18 16:25
--- NOTE | 2018-09-26 13:41 | P.PNOP ---
Subjective Interval history: doing well Physical Exam Vital signs: Vital Signs 09/25/18 16:00 09/25/18 17:21 09/25/18 19:59 Temperature 99 F 98.8 F Pulse Rate 63 78 Respiratory Rate 16 18 18 Blood Pressure 164/79 H 109/64 Pulse Oximetry 90 L 99 09/26/18 00:28 09/26/18 08:00 Temperature 98.6 F 98.4 F Pulse Rate 60 71 Respiratory Rate 16 12 Blood Pressure 121/70 128/65 Pulse Oximetry 98 100 Intake & Output 09/25/18 09/26/18 09/26/18 18:59 06:59 18:59 Intake Total 1000 / 1000 840 / 840 Balance 1000 / 1000 840 / 840 Weight 57.5 kg Intake: IV 1000 / 1000 LR 1000 mL Inj 1,000 ML @ 100 1000 / 1000 mls/hr IV.CONT .Q10H [facility] Rx#: [id number] Oral 840 / 840 Other: # Voids 3 Date of Last Bowel Movement 09/22/18 09/22/18 09/22/18 # Bowel Movements 0 Narrative: in chair, nad dressing c/d/i thigh soft neg homans nvi Results - Labs CBC & Chem 7: 09/26/18 06:12 09/24/18 04:51 Laboratory Results - last 24 hr 09/26/18 06:12 Hgb 10.8 L Hct 31.5 L - Procedures 09/24/2018, ORIF left periprosthetic femur fracture Assessment and Plan - Ortho Post Op Day # 2 - Assessment and Plan s/p ORIF L periprosthetic hip fracture POD#2 NWB ok to maintain dressing lovenox d/c planning - ortho cleared PT tobacco cessation f/up dr. cunha 2 weeks
== END 2018-09-26 16:25 | disposition home or self-care (01) | DRG 481 ==
LOC: NEPB 09:14 → NEDA 13:15 → INTOOBSV 13:15 → NEDA 16:10 → N06 16:19
PROVIDERS: ADMIT Internal Medicine; ATTEND Internal Medicine
PROC: ORIFFEM (2018-09-24 07:50)
CPT/HCPCS: 71010; 71045; 73502; 73552; 76000; 80053; 85014; 85018; 85025; 85610; 85730; 86850; 86900; 86901; 93005; 94150; 97110; 97116; 97162; 97165; 97535; 99285; C1713; C1769; C1776; J0690; J1100; J1170; J1580; J1650; J2175; J2250; J2270; J2405; J2704; J2710; J3010; J3370; J7050; J7120